=== PATIENT | female | born 1985 | race Two or more races ===

== ENCOUNTER 2024-12-05 20:27 | Emergency (ER) | payer OTHER ==
[~2024-12-05] VITALS: Ht 162.6 cm; Wt 70.3 kg
[2024-12-05] MEDS ORDERED: ORPHENADRINE CITRATE 30 MG/ML AMPUL IM STA (22:53)
[2024-12-05] MEDS ORDERED: KETOROLAC TROMETHAMINE 30 MG VIAL IM STA (22:53)
[2024-12-05] MEDS ORDERED: KETOROLAC TROMETHAMINE 30 MG VIAL ONE (23:06)
[2024-12-05] MEDS ORDERED: ORPHENADRINE CITRATE 30 MG/ML AMPUL ONE (23:06)
== END 2024-12-05 23:15 | disposition home or self-care (01) ==
LOC: ER 21:09
DX: R51.9 Headache, unspecified (principal)